=== PATIENT | female | born 1980 | race Hispanic/Latino ===

== ENCOUNTER 2016-10-18 02:52 | Emergency (ER) | payer OTHER | END 2016-10-18 23:12 | disposition home or self-care (01) | LOC: MERGE 02:52 → ED 02:52 | DX: M54.5 Low back pain (principal) ==

== ENCOUNTER 2017-01-26 21:15 | Emergency (ER) | payer OTHER ==
--- NOTE | 2017-01-26 21:19 | ED PDOC ---
Arrival/HPI <Mark Martínez - Last Filed: 01/26/17 23:00> - General Historian: Patient <Abelardo Mcgraw - Last Filed: 01/31/17 11:47> - General Time Seen by Provider: 01/26/17 21:18 - History of Present Illness Narrative History of Present Illness (Text): 01/26/17 21:19 36 y/o female, pmh including influenza, nkda, c/o multiple episodes of diarrhea s/p exposed to the patients with c.diff at her work. 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 Pt. stated that she has multiple episodes of diarrhea started this afternoon around 5pm, concerning that she has c.diff, no fever or chills, no chest pain or shortness of breath, no other medical or psychological complaints. (Abelardo Mcgraw) Past Medical History - Provider Review Nursing Documentation Reviewed: Yes - Tetanus Immunization Tetanus Immunization: Unknown - Past Medical History Past Medical History: No Previous - Psychiatric Hx Substance Use: No - Surgical History Hx Section: Yes Hx Cholecystectomy: Yes - Suicidal Assessment Feels Threatened In Home Enviroment: No <Abelardo Mcgraw - Last Filed: 01/31/17 11:47> Family/Social History - Physician Review Nursing Documentation Reviewed: Yes Family/Social History: Unknown Family HX Smoking Status: Never Smoked Hx Alcohol Use: No Hx Substance Use: No Hx Substance Use Treatment: No <Abelardo Mcgraw - Last Filed: 01/31/17 11:47> Allergies/Home Meds <Mark Martínez - Last Filed: 01/26/17 23:00> <Abelardo Mcgraw - Last Filed: 01/31/17 11:47> Allergies/Adverse Reactions: Allergies No Known Allergies Allergy (Verified 01/27/17 02:03) Review of Systems - Review of Systems Constitutional: absent: Fatigue, Fevers Eyes: absent: Vision Changes ENT: absent: Hearing Changes Respiratory: absent: SOB, Cough Cardiovascular: absent: Chest Pain Gastrointestinal: Diarrhea. absent: Abdominal Pain, Nausea, Vomiting Skin: absent: Rash, Pruritis Neurological: absent: Headache Endocrine: absent: Diaphoresis <Abelardo Mcgraw - Last Filed: 01/31/17 11:47> Physical Exam Vital Signs Reviewed: Yes Temperature: Afebrile Blood Pressure: Hypertensive Pulse: Regular Respiratory Rate: Normal Appearance: Positive for: Well-Appearing, Non-Toxic, Comfortable Pain Distress: None Mental Status: Positive for: Alert and Oriented X 3 - Systems Exam Head: Present: Atraumatic, Normocephalic Pupils: Present: PERRL Extroacular Muscles: Present: EOMI Conjunctiva: Present: Normal Mouth: Present: Moist Mucous Membranes Neck: Present: Normal Range of Motion Respiratory/Chest: Present: Clear to Auscultation, Good Air Exchange. No: Respiratory Distress, Accessory Muscle Use Cardiovascular: Present: Regular Rate and Rhythm, Normal S1, S2. No: Murmurs Abdomen: Present: Tenderness (+epigastric tenderness). No: Distention, Normal Bowel Sounds (hyperactive), Peritoneal Signs, Rebound, Guarding Back: Present: Normal Inspection. No: CVA Tenderness Upper Extremity: Present: Normal Inspection. No: Cyanosis, Edema Lower Extremity: Present: Normal Inspection. No: Edema Neurological: Present: GCS=15, Speech Normal, Motor Func Grossly Intact, Gait Normal, Memory Normal Skin: Present: Warm, Dry, Normal Color. No: Rashes Psychiatric: Present: Alert, Oriented x 3, Normal Insight, Normal Concentration <Abelardo Mcgraw - Last Filed: 01/31/17 11:47> Vital Signs Temp Pulse Resp BP Pulse Ox 01/27/17 02:00 79 18 135/78 100 01/26/17 21:38 98.3 F 86 18 143/99 H 100 Medical Decision Making <Mark Martínez - Last Filed: 01/26/17 23:00> - Lab Interpretations I have reviewed the lab results: Yes Interpretation: Abnormal lab values (K+ 3.1) - RAD Interpretation Trimmer Operator: Radiologist <Abelardo Mcgraw - Last Filed: 01/31/17 11:47> ED Course and Treatment: 01/26/17 21:48 -labs/ua/stool cultures -CT abdomen/pelvis -IVF/pepcid -observe and reassess 01/27/17 01:14 -labs are non-significant except potassium 3.1, potassium chloride ordered. -UA show no UTI -CT abdomen and pelvis show no acute findings -stool cultures pending and will take additional several days, still has diarrhea in the ER as per patient, very concerning for c.diff, flagyl po ordered and advised skipped all dairy and alcohol while on this medication. -Discharge home with pepcid/flagyl, stay hydrated, avoid dairy and alcohol, follow up with your own pmd and GI within 2 days, return to the ER for any new or worsening signs or symptoms. 01/31/17 11:46 -This is a follow up call to the patient, stool culture for cdiff toxin and antigen are negative, stool cultures show no samonella or any isolated bacteria noted, spoke to the patient and advised to stop any flagyl or antibiotics for diarrhea. Pt. appreciate the follow up and stated that she is feeling better now. (Abelardo Mcgraw) - Lab Interpretations Microbiology Results: Microbiology Results 01/26/17 22:18 Stool Stool Culture - Final NO SALMONELLA, SHIGELLA OR CAMPYLOBACTER ISOLATED. 01/26/17 22:18 Stool C. difficile Antigen & Toxin A,B (M - Final Lab Results: 01/26/17 22:18 01/26/17 22:18 Lab Results 01/26/17 22:18: Sodium 140, Potassium 3.1 L, Chloride 103, Carbon Dioxide 24, Anion Gap 16, BUN 13, Creatinine 0.9, Est GFR ( Amer) > 60, Est GFR (Non- Af Amer) > 60, Random Glucose 97, Calcium 8.8, Total Bilirubin 1.0, AST 32, ALT 27, Alkaline Phosphatase 41, Total Protein 6.7, Albumin 4.0, Globulin 2.7, Albumin/Globulin Ratio 1.5, Lipase 222 01/26/17 22:18: WBC 6.4, RBC 3.95, Hgb 12.0, Hct 35.2 L, MCV 89.1, MCH 30.4, MCHC 34.1, RDW 12.2, Plt Count 266, MPV 9.5, Gran % 47.3 L, Lymph % (Auto) 43.5 H, [place] % (Auto) 7.8 H, Eos % (Auto) 1.1 L, Baso % (Auto) 0.3, Gran # 3.04, Lymph # 2.8, [place] # 0.5, Eos # 0.1, Baso # 0.02 01/26/17 21:45: Urine Color Yellow, Urine Appearance Clear, Urine pH 7.0, Ur Specific [place] 1.010, Urine Protein Negative, Urine Glucose (UA) Negative, Urine Ketones Negative, Urine Blood Trace-intact H, Urine Nitrate Negative, Urine Bilirubin Negative, Urine Urobilinogen 0.2, Ur Leukocyte Esterase Negative , Urine RBC 1 - 3, Urine WBC 0 - 2, Ur Epithelial Cells 1 - 3, Urine Bacteria Few, Urine Other Fiber - RAD Interpretation Radiology Orders: 01/26/17 21:43 ABD & PELVIS IV CONTRAST ONLY [CT] Stat 01/26/17 21:43 ABD & PELVIS IV CONTRAST ONLY [CT] Stat FINDINGS: The liver, spleen, pancreas and adrenal glands demonstrate no acute abnormalities. Status post cholecystectomy. The kidneys are symmetric with no evidence of hydronephrosis. The aorta is unremarkable. Evaluation of bowel limited without enteric contrast. No bowel obstruction. Normal caliber appendix. Areas of apparent bowel wall prominence appear to be due to lack of distention. Cannot exclude minimal inflammation as visualized. Bilateral ovarian follicles/cysts. Fluid within the cervical canal. Further evaluation can be performed with dedicated ultrasound as warranted. No significant ascites. No free air. Degenerative changes. IMPRESSION: No definitive acute CT finding to correspond to reported history. Please see details/findings as above. Correlate clinically. Followup as warranted. Thank you for allowing us to participate in the care of your patient. Dictated and Authenticated by: Promise Almodovar MD 01/27/2017 12:56 AM Eastern Time ([place] & [place]) (Abelardo Mcgraw) - Medication Orders Current Medication Orders: Discontinued Medications Famotidine (Pepcid) 20 mg IVP STAT STA Stop: 01/26/17 21:44 Last Admin: 01/26/17 22:00 Dose: 20 mg Sodium Chloride (Sodium Chloride 0.9%) 1,000 mls @ 999 mls/hr IV .Q1H1M STA Stop: 01/26/17 22:43 Last Admin: 01/26/17 22:00 Dose: 999 mls/hr Iohexol (Omnipaque 350 100 Ml) Confirm Administered Dose 350 mg .ROUTE .STK-MED ONE Stop: 01/26/17 23:01 Metronidazole (Flagyl) 500 mg PO STAT STA PRN Reason: Protocol Stop: 01/27/17 01:14 Last Admin: 01/27/17 01:59 Dose: 500 mg Potassium Chloride (K-Dur 20 Meq Er Tab) 20 meq PO STAT STA Stop: 01/26/17 22:52 Last Admin: 01/27/17 02:00 Dose: 20 meq - PA / ACCOUNTING INTERN / Resident Statement ADRIANNA has reviewed & agrees with the documentation as recorded. ADRIANNA has examined the patient and agrees with the treatment plan. <Mark Martínez - Last Filed: 01/26/17 23:00> - PA / ACCOUNTING INTERN / Resident Statement ADRIANNA has reviewed & agrees with the documentation as recorded. <Abelardo Mcgraw - Last Filed: 01/31/17 11:47> Disposition/Present on Arrival <Mark Martínez - Last Filed: 01/26/17 23:00> - Present on Arrival Any Indicators Present on Arrival: No History of DVT/PE: No History of Uncontrolled Diabetes: No Urinary Catheter: No History of Decub. Ulcer: No History Surgical Site Infection Following: None - Disposition Have Diagnosis and Disposition been Completed?: Yes Disposition Time: 01:16 Patient Plan: Discharge <Abelardo Mcgraw - Last Filed: 01/31/17 11:47> - Disposition Diagnosis: Diarrhea, History of exposure to communicable disease Disposition: HOME/ ROUTINE Condition: GOOD Additional Instructions: -Discharge home with pepcid/flagyl, stay hydrated, avoid dairy and alcohol, follow up with your own pmd and GI within 2 days, return to the ER for any new or worsening signs or symptoms. Prescriptions: Famotidine [Pepcid] 20 mg PO BID #20 tab metroNIDAZOLE [Flagyl] 500 mg PO TID #30 tab Referrals: Nikki Shanks MD [Primary Care Provider] - Follow up with primary José Miguel Flores DO [Staff Provider] - Follow up with primary Forms: WORK NOTE
[2017-01-26 21:38] VITALS: RESP 18; TEMP 98.3; O2SAT 100
[2017-01-26 21:39] VITALS: BMI 30.3
[2017-01-26] MEDS ORDERED: Sodium Chloride 0.9% 1,000 ML IV STA (21:43)
[2017-01-26 21:53] LABS: URINE BILIRUBIN NEGATIVE (NEGATIVE); URINE BLOOD TRACE-INTACT (NEGATIVE); URINE GLUCOSE (UA) NEGATIVE (NEGATIVE); URINE KETONE NEGATIVE (NEGATIVE); URINE LEUKOCYTE ESTERASE NEGATIVE Leu/uL (NEGATIVE); URINE PROTEIN NEGATIVE mg/dL (<30 mg/dL); URINE UROBILINOGEN 0.2 E.U./dL (<1 E.U./dL)
[2017-01-26 21:54] LABS: URINE APPEARANCE CLEAR (CLEAR); URINE COLOR YELLOW (YELLOW)
[2017-01-26 21:59] LABS: URINE BACTERIA FEW (NEG); URINE WBC 0 - 2 /hpf (0-6)
[2017-01-26 22:36] LABS: BASO # 0.02 K/mm3 (0.0-2.0); BASO % 0.3 % (0.0-3.0); EOS # 0.1 (0.0-0.7); EOS % 1.1 % (1.5-5.0); GRAN # 3.04 (1.4-6.5); GRAN % 47.3 % (50.0-68.0); HEMATOCRIT 35.2 % (36.0-48.0); LYMPH # 2.8 (1.2-3.4); LYMPH % 43.5 % (22.0-35.0); MEAN CELL VOLUME 89.1 fl (80.0-105.0); MEAN CORPUSCULAR HEMOGLOBIN 30.4 pg (25.0-35.0); MEAN CORPUSCULAR HGB CONC 34.1 g/dl (31.0-37.0); MEAN PLATELET VOLUME 9.5 fl (7.0-11.0); MONO # 0.5 (0.1-0.6); MONO % 7.8 % (1.0-6.0); RED CELL DISTRIBUTION WIDTH 12.2 % (11.5-14.5); WHITE BLOOD COUNT 6.4 10^3/ul (4.5-11.0)
[2017-01-26 22:49] LABS: ALB/GLOB RATIO 1.5 (1.1-1.8); ALKALINE PHOSPHATASE 41 U/L (38-133); ALT/SGPT 27 U/L (7-56); AST/SGOT 32 U/L (15-39); BLOOD UREA NITROGEN 13 mg/dL (7-21); CALCIUM 8.8 mg/dL (8.4-10.5); CARBON DIOXIDE 24 mmol/L (21-33); CHLORIDE 103 mmol/L (98-107); GFR AFRICAN-AMERICAN > 60; GLUCOSE,RANDOM 97 mg/dL (70-110); LIPASE 222 U/L (23-300); POTASSIUM 3.1 mmol/L (3.6-5.0); SODIUM 140 mmol/L (132-148); TOTAL PROTEIN 6.7 g/dL (5.8-8.3)
[2017-01-26] MEDS ORDERED: Potassium Chloride 20 mEq ER Tab PO STA (22:51)
[2017-01-26] MEDS ORDERED: Iohexol 350 MG/100 ML VIAL ONE (23:00)
--- NOTE | 2017-01-27 00:56 | CT ---
EXAM: CT Abdomen and Pelvis With Intravenous Contrast CLINICAL HISTORY: 36 years old, female; Signs and symptoms; Other: Diarrhea; Prior surgery; Surgery date: 6+ months; Surgery type: HX cholecystectomy, HX ; Additional info: Multiple episodes of diarrhea TECHNIQUE: Axial computed tomography images of the abdomen and pelvis with intravenous contrast. All CT scans at this facility use one or more dose reduction techniques, viz.: automated exposure control; ma/kV adjustment per patient size (including targeted exams where dose is matched to indication; i.e. head); or iterative reconstruction technique. Coronal and sagittal reformatted images were created and reviewed. CONTRAST: 100 mL of Omnipaque 350 administered intravenously. COMPARISON: No relevant prior studies available. FINDINGS: The liver, spleen, pancreas and adrenal glands demonstrate no acute abnormalities. Status post cholecystectomy. The kidneys are symmetric with no evidence of hydronephrosis. The aorta is unremarkable. Evaluation of bowel limited without enteric contrast. No bowel obstruction. Normal caliber appendix. Areas of apparent bowel wall prominence appear to be due to lack of distention. Cannot exclude minimal inflammation as visualized. Bilateral ovarian follicles/cysts. Fluid within the cervical canal. Further evaluation can be performed with dedicated ultrasound as warranted. No significant ascites. No free air. Degenerative changes. IMPRESSION: No definitive acute CT finding to correspond to reported history. Please see details/findings as above. Correlate clinically. Followup as warranted.
[2017-01-27 02:00] VITALS: BP 135/78; PULSE 79
== END 2017-01-27 02:00 | disposition home or self-care (01) ==
LOC: ED 21:15
DX: R19.7 Diarrhea, unspecified (principal); Z20.9 Contact with and (suspected) exposure to unspecified communicable disease
CPT/HCPCS: 74177; 80053; 81001; 83690; 85025; 87045; 87324; 96374; 99283; J7040; Q9967

== ENCOUNTER 2017-06-28 10:42 | Emergency (ER) | payer OTHER ==
[2017-06-28 10:47] VITALS: BMI 32.7
[2017-06-28 10:52] VITALS: TEMP 98.2; O2SAT 99
--- NOTE | 2017-06-28 11:01 | ED PDOC ---
Arrival/HPI - General Chief Complaint: Chest Pain Time Seen by Provider: 06/28/17 10:52 Historian: Patient - History of Present Illness Narrative History of Present Illness (Text): 06/28/17 10:58 36yo female with no PMhx who present with complaint of left sided chest pain, described as "soreness" since yesterday. She notes that pain is intermittent and she usually gets SOB with the pain, because of worsening pain with deep inspiration. Did not take any medication for the pain. denies cough, orthopnea, trauma, LE edema, recent travel, recent surgery, OCP use, diaphoresis, nausea, vomiting, any other complaint. Past Medical History - Provider Review Nursing Documentation Reviewed: Yes - Infectious Disease Hx of Infectious Diseases: None - Tetanus Immunization Tetanus Immunization: Unknown - Past Medical History Past Medical History: No Previous - Psychiatric Hx Substance Use: No - Surgical History Hx Section: Yes Hx Cholecystectomy: Yes - Anesthesia Hx Anesthesia Reactions: No Hx Malignant Hyperthermia: No - Suicidal Assessment Feels Threatened In Home Enviroment: No Family/Social History - Physician Review Nursing Documentation Reviewed: Yes Family/Social History: Unknown Family HX Smoking Status: Never Smoked Hx Alcohol Use: No Hx Substance Use: No Hx Substance Use Treatment: No Allergies/Home Meds Allergies/Adverse Reactions: Allergies No Known Allergies Allergy (Verified 01/27/17 02:03) Review of Systems - Physician Review All systems were reviewed & negative as marked: Yes - Review of Systems Constitutional: Normal Eyes: Normal ENT: Normal Respiratory: Normal Cardiovascular: Chest Pain. absent: Palpitations, Edema, Calf Pain, YEPEZ, Orthopnea, Syncope Gastrointestinal: Normal Genitourinary Female: Normal Musculoskeletal: Normal Skin: Normal Neurological: Normal Endocrine: Normal Hemo/Lymphatic: Normal Psychiatric: Normal Physical Exam Vital Signs Reviewed: Yes Vital Signs Temp Pulse Resp BP Pulse Ox 06/28/17 10:42 98.2 F 71 17 124/74 99 Temperature: Afebrile Blood Pressure: Normal Pulse: Regular Respiratory Rate: Normal Appearance: Positive for: Well-Appearing, Non-Toxic, Comfortable Pain Distress: None Mental Status: Positive for: Alert and Oriented X 3 - Systems Exam Head: Present: Atraumatic, Normocephalic Pupils: Present: PERRL Extroacular Muscles: Present: EOMI Conjunctiva: Present: Normal Mouth: Present: Moist Mucous Membranes Neck: Present: Normal Range of Motion Respiratory/Chest: Present: Clear to Auscultation, Good Air Exchange, Tender to Palpation (Left sternal wall). No: Respiratory Distress, Accessory Muscle Use, Wheezes, Decreased Breath Sounds, Rales, Retracting, Rhonchi, Tachypneic Cardiovascular: Present: Regular Rate and Rhythm, Normal S1, S2. No: Murmurs Abdomen: Present: Normal Bowel Sounds. No: Tenderness, Distention, Peritoneal Signs Back: Present: Normal Inspection Upper Extremity: Present: Normal Inspection. No: Cyanosis, Edema Lower Extremity: Present: Normal Inspection. No: Edema Neurological: Present: GCS=15, CN II-XII Intact, Speech Normal Skin: Present: Warm, Dry, Normal Color. No: Rashes Psychiatric: Present: Alert, Oriented x 3, Normal Insight, Normal Concentration Medical Decision Making ED Course and Treatment: 06/28/17 11:01 36yo female in Ed for left sided chest pain x 2days. Labs ordered Chest xray ordered ASA ordered will re evaluate and dispo accordingly. 06/28/17 12:36 On re evaluation pt notes that her pain improved. Lab was unremarkable and chest xray was negative EKG NSR @72bpm No ST changes All result was DW the pt. she will be DC home with Ibuprofen 600mg for Pleuritic pain. Referred to her PMD/Secretarial Teacher. - Lab Interpretations Lab Results: 06/28/17 11:30 06/28/17 11:30 Lab Results 06/28/17 11:30: Sodium 140, Potassium 3.8, Chloride 103, Carbon Dioxide 28, Anion Gap 14, BUN 11, Creatinine 0.8, Est GFR ( Amer) > 60, Est GFR (Non- Af Amer) > 60, Random Glucose 85, Calcium 9.5, Magnesium 2.1, Total Bilirubin 0.8, AST 30, ALT 29, Alkaline Phosphatase 43, Lactate Dehydrogenase 432, Total Creatine Kinase 80, Troponin I < 0.01, Total Protein 7.4, Albumin 4.1, Globulin 3.3, Albumin/Globulin Ratio 1.3 06/28/17 11:30: Urine Color Yellow, Urine Appearance Clear, Urine pH 6.5, Ur Specific [place] 1.020, Urine Protein Negative, Urine Glucose (UA) Negative, Urine Ketones Negative, Urine Blood Negative, Urine Nitrate Negative, Urine Bilirubin Negative, Urine Urobilinogen 0.2, Ur Leukocyte Esterase Negative 06/28/17 11:30: PT 11.9, INR 1.03, APTT 27.6, D-Dimer, Quantitative < 200 06/28/17 11:30: WBC 6.4, RBC 4.40, Hgb 13.2, Hct 40.4, MCV 91.8, MCH 30.0, MCHC 32.7, RDW 12.5, Plt Count 296, MPV 9.9, Gran % 54.4, Lymph % (Auto) 38.7 H, [place] % (Auto) 5.8, Eos % (Auto) 0.9 L, Baso % (Auto) 0.2, Gran # 3.47, Lymph # 2.5, [place] # 0.4, Eos # 0.1, Baso # 0.01 - RAD Interpretation Radiology Orders: 06/28/17 10:57 CHEST PORTABLE [RAD] Stat - Medication Orders Current Medication Orders: Discontinued Medications Aspirin (Aspirin) 325 mg PO STAT STA Stop: 06/28/17 10:57 Last Admin: 06/28/17 11:25 Dose: 325 mg Ketorolac Tromethamine (Toradol) 30 mg IVP STAT STA Stop: 06/28/17 12:32 Disposition/Present on Arrival - Present on Arrival Any Indicators Present on Arrival: No History of DVT/PE: No History of Uncontrolled Diabetes: No Urinary Catheter: No History of Decub. Ulcer: No History Surgical Site Infection Following: None - Disposition Have Diagnosis and Disposition been Completed?: Yes Diagnosis: Pleuritic chest pain Disposition: HOME/ ROUTINE Disposition Time: 12:40 Patient Plan: Discharge Condition: STABLE Discharge Instructions (ExitCare): Chest Pain (ED) Additional Instructions: Follow up with your doctor/Secretarial Teacher Return to Ed for any new or worsening symptoms Prescriptions: Ibuprofen [Motrin Tab] 600 mg PO Q6 #20 tab Referrals: Nikki Shanks MD [Primary Care Provider] - Follow up with primary Vipul Brewer MD [Staff Provider] - Follow up with primary Forms: [employer] (Sami)
[2017-06-28 12:13] LABS: BASO # 0.01 K/mm3 (0.0-2.0); BASO % 0.2 % (0.0-3.0); EOS # 0.1 (0.0-0.7); EOS % 0.9 % (1.5-5.0); GRAN # 3.47 (1.4-6.5); GRAN % 54.4 % (50.0-68.0); HEMOGLOBIN 13.2 g/dL (12.0-16.0); LYMPH # 2.5 (1.2-3.4); LYMPH % 38.7 % (22.0-35.0); MEAN CELL VOLUME 91.8 fl (80.0-105.0); MEAN CORPUSCULAR HGB CONC 32.7 g/dl (31.0-37.0); MEAN PLATELET VOLUME 9.9 fl (7.0-11.0); MONO # 0.4 (0.1-0.6); MONO % 5.8 % (1.0-6.0); RBC 4.4 10^6/uL (3.5-6.1); RED CELL DISTRIBUTION WIDTH 12.5 % (11.5-14.5); WHITE BLOOD COUNT 6.4 10^3/ul (4.5-11.0)
[2017-06-28 12:15] LABS: PH,URINE 6.5 (4.7-8.0); URINE BILIRUBIN NEGATIVE (NEGATIVE); URINE BLOOD NEGATIVE (NEGATIVE); URINE GLUCOSE (UA) NEGATIVE (NEGATIVE); URINE LEUKOCYTE ESTERASE NEGATIVE Leu/uL (NEGATIVE); URINE NITRATE NEGATIVE (NEGATIVE); URINE PROTEIN NEGATIVE mg/dL (<30 mg/dL); URINE UROBILINOGEN 0.2 E.U./dL (<1 E.U./dL)
[2017-06-28 12:16] LABS: ALB/GLOB RATIO 1.3 (1.1-1.8); ALBUMIN 4.1 g/dL (3.0-4.8); ALT/SGPT 29 U/L (7-56); AST/SGOT 30 U/L (14-36); BLOOD UREA NITROGEN 11 mg/dL (7-21); CALCIUM 9.5 mg/dL (8.4-10.5); GFR AFRICAN-AMERICAN > 60; GFR NON-AFRICAN AMERICAN > 60; MAGNESIUM 2.1 mg/dL (1.7-2.2)
[2017-06-28 12:23] LABS: URINE APPEARANCE CLEAR (CLEAR); URINE COLOR YELLOW (YELLOW)
[2017-06-28 12:29] LABS: INR 1.03 (0.93-1.08); PARTIAL THROMBOPLASTIN TIME 27.6 Seconds (25.1-36.5); PROTHROMBIN TIME 11.9 SECONDS (9.4-12.5); TROPONIN I < 0.01 ng/mL
[2017-06-28 12:30] LABS: D DIMER < 200 ng/mL (0-243)
[2017-06-28 12:53] VITALS: BP 120/76; PULSE 60; RESP 16
--- NOTE | 2017-06-28 13:54 | RAD ---
HISTORY: Chest pain COMPARISON: 06/30/2014. FINDINGS: LUNGS: The lungs are well inflated and clear. PLEURA: No significant pleural effusion identified, no pneumothorax apparent. CARDIOVASCULAR: Normal. OSSEOUS STRUCTURES: No significant abnormalities. VISUALIZED UPPER ABDOMEN: Normal. OTHER FINDINGS: None. IMPRESSION: No active pulmonary disease.
--- NOTE | 2017-06-29 16:08 | CARD ---
APPROVED REPORT EKG Measurement Heart [id number] <Conclusion> Normal sinus rhythm Possible Left atrial enlargement Nonspecific T wave abnormality Abnormal ECG
== END 2017-06-28 13:14 | disposition home or self-care (01) ==
LOC: ED 10:42
DX: R07.89 Other chest pain (principal)
CPT/HCPCS: 71045; 80053; 81003; 82550; 83615; 83735; 84484; 85025; 85378; 85610; 85730; 93005; 96374; 99283; J1885

== ENCOUNTER 2017-07-15 08:08 | Emergency (ER) | payer OTHER ==
[2017-07-15 08:24] VITALS: RESP 18; BMI 32.0
--- NOTE | 2017-07-15 08:48 | ED PDOC ---
Arrival/HPI - General Time Seen by Provider: 07/15/17 08:28 Historian: Patient - History of Present Illness Narrative History of Present Illness (Text): 07/15/17 08:46 36 year old female, with no significant past medical history, presents to the Emergency department complaining of body ache, chills, fever and cough since last night. Patient informs worsening symptoms bringing her to the Emergency department today. Patient denies taking the flu shot this year or any sick contact. Patient denies any sore throat, nausea, vomiting, abdominal pain, diarrhea, chest pain, shortness of breath or any other complaints. Patient requests to get rapid flu swab test to be done. PMD: Dr. Luis Time/Duration: Other (last night) Symptom Onset: Gradual Symptom Course: Unchanged Quality: Aching Activities at Onset: Light Context: Home Past Medical History - Provider Review Nursing Documentation Reviewed: Yes - Infectious Disease Hx of Infectious Diseases: None - Tetanus Immunization Tetanus Immunization: Unknown - Past Medical History Past Medical History: No Previous - Psychiatric Hx Substance Use: No - Surgical History Hx Section: Yes Hx Cholecystectomy: Yes - Anesthesia Hx Anesthesia Reactions: No Hx Malignant Hyperthermia: No - Suicidal Assessment Feels Threatened In Home Enviroment: No Family/Social History - Physician Review Nursing Documentation Reviewed: Yes Family/Social History: No Known Family HX Smoking Status: Never Smoked Hx Alcohol Use: No Hx Substance Use: No Hx Substance Use Treatment: No Allergies/Home Meds Allergies/Adverse Reactions: Allergies No Known Allergies Allergy (Verified 07/15/17 09:21) Review of Systems - Physician Review All systems were reviewed & negative as marked: Yes - Review of Systems Constitutional: Fevers Eyes: Normal ENT: Normal. absent: Sore Throat Respiratory: Cough Cardiovascular: Normal. absent: Chest Pain Gastrointestinal: Normal. absent: Abdominal Pain, Diarrhea, Nausea, Vomiting Genitourinary Female: Normal Musculoskeletal: Other (generalized body aches) Skin: Normal Neurological: Normal Endocrine: Normal Hemo/Lymphatic: Normal Psychiatric: Normal Physical Exam Vital Signs Reviewed: Yes Vital Signs Temp Pulse Resp BP Pulse Ox 07/15/17 09:42 100.1 F H 100 H 18 119/64 97 07/15/17 09:01 100.7 F H 07/15/17 08:23 100.7 F H 82 18 123/76 100 Temperature: Febrile Blood Pressure: Normal Pulse: Regular Respiratory Rate: Normal Appearance: Positive for: Well-Appearing, Non-Toxic, Comfortable Pain Distress: None Mental Status: Positive for: Alert and Oriented X 3 - Systems Exam Head: Present: Atraumatic, Normocephalic Pupils: Present: PERRL Extroacular Muscles: Present: EOMI Conjunctiva: Present: Normal Mouth: Present: Moist Mucous Membranes Pharnyx: Present: ERYTHEMA Neck: Present: Normal Range of Motion Respiratory/Chest: Present: Clear to Auscultation, Good Air Exchange. No: Respiratory Distress, Accessory Muscle Use Cardiovascular: Present: Regular Rate and Rhythm, Normal S1, S2. No: Murmurs Abdomen: Present: Normal Bowel Sounds. No: Tenderness, Distention, Peritoneal Signs Back: Present: Normal Inspection Upper Extremity: Present: Normal Inspection. No: Cyanosis, Edema Lower Extremity: Present: Normal Inspection. No: Edema Neurological: Present: GCS=15, CN II-XII Intact, Speech Normal Skin: Present: Warm, Dry, Normal Color. No: Rashes Psychiatric: Present: Alert, Oriented x 3, Normal Insight, Normal Concentration Medical Decision Making ED Course and Treatment: 07/15/17 08:53 Impression: 36 year old female presents to the Emergency department for flu- like symptoms. Plan: -- Chest X-ray -- Tylenol -- Influenza -- Rapid flu swab -- Reassess and disposition Progress Notes: 07/15/17 09:31 Chest X-ray reviewed by radiologist, shows no active pulmonary disease. 07/15/17 13:22 high clinical suspciion for flu. treated empirically. - Lab Interpretations Lab Results: Lab Results 07/15/17 09:20: Influenza Typ A,B (EIA) Negative for flu a/b 07/15/17 09:20: Grp A Beta Strep Ag Negative - RAD Interpretation Radiology Orders: 07/15/17 08:33 CXR [CHEST TWO VIEWS (PA/LAT)] [RAD] Stat - Medication Orders Current Medication Orders: Discontinued Medications Acetaminophen (Tylenol 325mg Tab) 975 mg PO STAT STA Stop: 07/15/17 08:34 Last Admin: 07/15/17 09:01 Dose: 975 mg MAR Pain/Vitals Document 07/15/17 09:01 ARTEM (Rec: 07/15/17 09:02 ARTEM [id number]) Pain Reassessment Is This A Pain ReAssessment? No Sleep Is patient sleeping during reassessment? No Presence of Pain Presence of Pain No Pain Scale Used Pain Scale Used Numeric Vitals Temperature (97.6 F-99.6 F) 100.7 F - Scribe Statement The provider has reviewed the documentation as recorded by the Scribe Aminata Cohn. All medical record entries made by the Scribe were at my direction and personally dictated by me. I have reviewed the chart and agree that the record accurately reflects my personal performance of the history, physical exam, medical decision making, and the department course for this patient. I have also personally directed, reviewed, and agree with the discharge instructions and disposition. Disposition/Present on Arrival - Present on Arrival Any Indicators Present on Arrival: No History of DVT/PE: No History of Uncontrolled Diabetes: No Urinary Catheter: No History Surgical Site Infection Following: None - Disposition Have Diagnosis and Disposition been Completed?: Yes Diagnosis: Influenza-like illness Disposition: HOME/ ROUTINE Disposition Time: 09:54 Condition: STABLE Discharge Instructions (ExitCare): Viral Syndrome (ED) Additional Instructions: follow up with your doctor. return to er with worsening symptoms or concerns. Prescriptions: Oseltamivir Phosphate [Tamiflu] 75 mg PO BID #10 capsule Referrals: [facility] [place] [Outside] - Follow up with primary [facility] [Outside] - Follow up with primary Forms: [employer] (Croatian)
--- NOTE | 2017-07-15 09:30 | RAD ---
HISTORY: COMPARISON: 06/28/2017. TECHNIQUE: Chest PA and lateral FINDINGS: LINES AND TUBES: None. LUNG AND PLEURA: The lungs are well inflated and clear. HEART AND MEDIASTINUM: The heart is not enlarged. The hilar and mediastinal contours are within normal limits. SKELETAL STRUCTURES: The bony structures are within normal limits for the patient's age. VISUALIZED UPPER ABDOMEN: Normal. OTHER FINDINGS: None. IMPRESSION: No active pulmonary disease.
[2017-07-15 09:44] VITALS: BP 119/64; PULSE 100; TEMP 100.1; O2SAT 97
== END 2017-07-15 10:09 | disposition home or self-care (01) ==
LOC: ED 08:08
DX: J11.1 Influenza due to unidentified influenza virus with other respiratory manifestations (principal)

== ENCOUNTER 2017-12-27 02:53 | Emergency (ER) | payer OTHER ==
[2017-12-27 03:01] VITALS: BMI 31.1
[2017-12-27 03:06] VITALS: O2SAT 100
[2017-12-27] MEDS ORDERED: Sodium Chloride 0.9% 1,000 ML IV STA (03:20)
--- NOTE | 2017-12-27 03:24 | ED PDOC ---
Arrival/HPI - General Historian: Patient - History of Present Illness Time/Duration: Prior to Arrival Symptom Onset: Sudden Symptom Course: Intermittent Severity Level: 7, Moderate Activities at Onset: Rest <Brittney Shepard - Last Filed: 12/27/17 04:41> <Noe MACKAvinash - Last Filed: 12/27/17 05:59> - General Chief Complaint: Abdominal Pain Time Seen by Provider: 12/27/17 03:01 - History of Present Illness Narrative History of Present Illness (Text): 12/27/17 03:21 Patient is a 37 year old female with past medical history of gastric ulcers who presents to the ED for epigastric pain. Patient states that the pain started 45 minutes prior to arrival. Epigastric pain woke her up from her sleep. It is intermittent, non-radiating and was a 9/10 when symptoms started. Currently rates the pain a 7/10. Patient denies any alleviating or exacerbating factors. States that she has felt this pain before a year ago and was diagnosed with gastic ulcers via EGD at that time. Epigastric pain is associated with 3 episodes of NBNB vomiting. Denies fevers, chills, headaches, dizziness, cp, palpitations, sob, dysuria, hematuria, constipation/diarrhea. LMP was 12/01/17. (Brittney Shepard) Past Medical History - Provider Review Nursing Documentation Reviewed: Yes - Infectious Disease Hx of Infectious Diseases: None - Tetanus Immunization Tetanus Immunization: Unknown - Past Medical History Past Medical History: No Previous - Cardiac Hx Cardiac Disorders: No - Pulmonary Hx Respiratory Disorders: No - Neurological Hx Neurological Disorder: No - HEENT Hx HEENT Disorder: No - Renal Hx Renal Disorder: No - Endocrine/Metabolic Hx Endocrine Disorders: No - Hematological/Oncological Hx Blood Disorders: No - Integumentary Hx Dermatological Disorder: No - Musculoskeletal/Rheumatological Hx Musculoskeletal Disorders: No - Gastrointestinal Hx Gastrointestinal Ulcer: Yes - Psychiatric Hx Substance Use: No - Surgical History Hx Section: Yes Hx Cholecystectomy: Yes - Anesthesia Hx Anesthesia Reactions: No Hx Malignant Hyperthermia: No - Suicidal Assessment Feels Threatened In Home Enviroment: No <Brittney Shepard - Last Filed: 12/27/17 04:41> Family/Social History - Physician Review Nursing Documentation Reviewed: Yes Family/Social History: Diabetes, Hypertension Smoking Status: Never Smoked Hx Alcohol Use: No Hx Substance Use: No Hx Substance Use Treatment: No <Brittney Shepard - Last Filed: 12/27/17 04:41> Allergies/Home Meds <Brittney Shepard - Last Filed: 12/27/17 04:41> <Avinash Liu DO - Last Filed: 12/27/17 05:59> Allergies/Adverse Reactions: Allergies morphine Allergy (Verified 12/27/17 03:20) ITCHING shellfish derived Allergy (Verified 12/27/17 03:21) ANAPHYLAXIS Review of Systems - Review of Systems Constitutional: Normal. absent: Fatigue, Fevers Eyes: Normal. absent: Vision Changes ENT: Normal. absent: Hearing Changes Respiratory: Normal. absent: SOB, Cough, Wheezing Cardiovascular: Normal. absent: Chest Pain, Palpitations, Calf Pain Gastrointestinal: Normal, Abdominal Pain (Epigastric), Nausea, Vomiting. absent : Constipation, Diarrhea, Appetite Changes, Hematemesis, Food Intolerance Genitourinary Female: Normal. absent: Dysuria, Frequency, Hematuria Musculoskeletal: Normal Skin: Normal. absent: Rash Neurological: Normal. absent: Headache, Dizziness <Brittney Shepard - Last Filed: 12/27/17 04:41> - Physician Review All systems were reviewed & negative as marked: Yes <Avinash Liu DO - Last Filed: 12/27/17 05:59> Physical Exam Vital Signs Reviewed: Yes Temperature: Afebrile Blood Pressure: Normal Pulse: Regular Respiratory Rate: Normal Appearance: Positive for: Well-Appearing, Non-Toxic, Uncomfortable Pain Distress: Moderate Mental Status: Positive for: Alert and Oriented X 3 - Systems Exam Head: Present: Atraumatic, Normocephalic Pupils: Present: PERRL Extroacular Muscles: Present: EOMI Conjunctiva: Present: Normal Mouth: Present: Moist Mucous Membranes Neck: Present: Normal Range of Motion Respiratory/Chest: Present: Clear to Auscultation, Good Air Exchange. No: Respiratory Distress, Accessory Muscle Use Cardiovascular: Present: Regular Rate and Rhythm, Normal S1, S2 Abdomen: Present: Tenderness (Epigastric tenderness), Normal Bowel Sounds. No: Distention, Peritoneal Signs, Rebound, Guarding, McBurney's Point Tender, Hernias Back: Present: Normal Inspection. No: CVA Tenderness Upper Extremity: Present: Normal Inspection, Normal ROM, NORMAL PULSES Lower Extremity: Present: Normal Inspection, NORMAL PULSES. No: CALF TENDERNESS Neurological: Present: GCS=15, CN II-XII Intact Skin: Present: Warm, Dry, Normal Color Psychiatric: Present: Alert, Oriented x 3 <Brittney Shepard - Last Filed: 12/27/17 04:41> <Avinash Liu DO - Last Filed: 12/27/17 05:59> Vital Signs Temp Pulse Resp BP Pulse Ox 12/27/17 05:17 98 F 74 18 110/68 100 12/27/17 03:01 98.3 F 79 16 122/83 100 Medical Decision Making Re-evaluation Time: 04:40 Reassessment Condition: Re-examined, Improving,but remains with symptoms - Lab Interpretations I have reviewed the lab results: Yes <Brittney Shepard - Last Filed: 12/27/17 04:41> <Avinash Liu DO - Last Filed: 12/27/17 05:59> ED Course and Treatment: 12/27/17 03:28 Patient is a 37 year old female with past medical history of gastric ulcers who presents with epigastric pain that started prior to arrival that was associated with 3 episodes of NBNB vomiting. -Labs -Pepcid -NS bolus -Zofran 12/27/17 04:39 Patient re-evaluated at the bedside. States that pain scale is now 4/10 and she feels better. Will discharge patient home with instructions to follow up with her GI doctor and Dr Shanks. (Brittney Shepard) Patient Seen With Resident: In agreement with resident note which contains more details about the patient. Patient was seen and evaluated with resident. Came up with plan and treatment together. 37 year old female presents complaining of intermittent epigastric abdominal pain that began 45 minutes prior to arrival associated with 3 episodes of vomiting. Plan: - Labs -- Pepcid, IV Fluids, Zofran Inj -- POC Urine Preg Test -- Urinalysis -- Reassess and disposition (Avinash Liu DO) - Lab Interpretations Lab Results: 12/27/17 03:35 12/27/17 03:35 Lab Results 12/27/17 03:35: Sodium 139, Potassium 4.1, Chloride 102, Carbon Dioxide 26, Anion Gap 15, BUN 15, Creatinine 0.7, Est GFR ( Amer) > 60, Est GFR (Non- Af Amer) > 60, Random Glucose 100, Calcium 8.8, Total Bilirubin 0.5, AST 27, ALT 34, Alkaline Phosphatase 44, Total Protein 7.2, Albumin 4.0, Globulin 3.2, Albumin/Globulin Ratio 1.3 12/27/17 03:35: WBC 10.3 D, RBC 4.11, Hgb 12.5, Hct 36.1, MCV 87.8 D, MCH 30.4 , MCHC 34.6, RDW 12.5, Plt Count 256, MPV 10.0, Gran % 58.5, Lymph % (Auto) 34.0 , Kidder % (Auto) 6.5 H, Eos % (Auto) 0.9 L, Baso % (Auto) 0.1, Gran # 6.01, Lymph # (Auto) 3.5 H, Kidder # (Auto) 0.7 H, Eos # (Auto) 0.1, Baso # (Auto) 0.01 12/27/17 03:07: Urine Color Yellow, Urine Appearance Clear, Urine pH 6.0, Ur Specific [place] 1.020, Urine Protein Negative, Urine Glucose (UA) Negative, Urine Ketones Negative, Urine Blood Negative, Urine Nitrate Negative, Urine Bilirubin Negative, Urine Urobilinogen 0.2, Ur Leukocyte Esterase Negative - Medication Orders Current Medication Orders: Discontinued Medications Famotidine (Pepcid) 20 mg IVP STAT STA Stop: 12/27/17 03:21 Last Admin: 12/27/17 03:35 Dose: 20 mg IVP Administration Document 12/27/17 03:35 MS (Rec: 12/27/17 03:36 MS [id number]) Charges for Administration # of IVP Administrations 1 Sodium Chloride (Sodium Chloride 0.9%) 1,000 mls @ 999 mls/hr IV .Q1H1M STA Stop: 12/27/17 04:20 Last Admin: 12/27/17 03:34 Dose: 999 mls/hr eMAR Start Stop Document 12/27/17 03:34 MS (Rec: 12/27/17 03:34 MS [id number]) Intravenous Solution Start Date 12/27/17 Start Time 03:34 End Date 12/27/17 End time 04:34 Total Infusion Time 60 Ondansetron HCl (Zofran Inj) 4 mg IVP STAT STA Stop: 12/27/17 03:19 Last Admin: 12/27/17 03:34 Dose: 4 mg IVP Administration Document 12/27/17 03:34 MS (Rec: 12/27/17 03:34 MS [id number]) Charges for Administration # of IVP Administrations 1 <Brittney Shepard - Last Filed: 12/27/17 04:41> - PA / TWISTING DEPARTMENT END FINDER / Resident Statement ADRIANNA has reviewed & agrees with the documentation as recorded. / has examined the patient and agrees with the treatment plan. - Scribe Statement The provider has reviewed the documentation as recorded by the Scribe <Avinash Liu DO - Last Filed: 12/27/17 05:59> - Scribe Statement La Nena Delacruz Provider Scribe Attestation: All medical record entries made by the Scribe were at my direction and personally dictated by me. I have reviewed the chart and agree that the record accurately reflects my personal performance of the history, physical exam, medical decision making, and the department course for this patient. I have also personally directed, reviewed, and agree with the discharge instructions and disposition. (Avinash Liu DO) Disposition/Present on Arrival - Present on Arrival Any Indicators Present on Arrival: No History of DVT/PE: No History of Uncontrolled Diabetes: No Urinary Catheter: No History of Decub. Ulcer: No History Surgical Site Infection Following: None - Disposition Have Diagnosis and Disposition been Completed?: Yes Disposition Time: 04:41 Patient Plan: Discharge <Brittney Shepard - Last Filed: 12/27/17 04:41> - Disposition Disposition Time: 04:00 <Avinash Liu DO - Last Filed: 12/27/17 05:59> - Disposition Diagnosis: Gastritis Disposition: HOME/ ROUTINE Condition: GOOD Discharge Instructions (ExitCare): Gastritis (DC) Additional Instructions: COLLIN SAGASTUME, thank you for letting us take care of you today. The emergency medical care you received today was directed at your acute symptoms. If you were prescribed any medication, please fill it and take as directed. It may take several days for your symptoms to resolve. Return to the Emergency Department if your symptoms worsen, do not improve, or if you have any other problems. Please contact your doctor or call one of the physicians/clinics you have been referred to that are listed on the Patient Visit Information form that is included in your discharge packet. Bring any paperwork you were given at discharge with you along with any medications you are taking to your follow up visit. Our treatment cannot replace ongoing medical care by a primary care provider outside of the emergency department. Thank you for allowing the [facility] team to be part of your care today. Follow up with your primary care doctor in 2-3 days for re-evaluation and further management. Prescriptions: Omeprazole Magnesium [Prilosec Otc] 20 mg PO DAILY #14 tablet. Ranitidine HCl [Zantac] 150 mg PO BID #10 tablet Referrals: [facility], [Non-Staff] - Follow up with primary Nikki Shanks MD [Family Provider] - Follow up with primary Forms: [employer] ([place]ian)
[2017-12-27 03:53] LABS: BASO # 0.01 K/mm3 (0.0-2.0); BASO % 0.1 % (0.0-3.0); EOS # 0.1 (0.0-0.7); EOS % 0.9 % (1.5-5.0); GRAN # 6.01 (1.4-6.5); GRAN % 58.5 % (50.0-68.0); HEMOGLOBIN 12.5 g/dL (12.0-16.0); LYMPH # 3.5 (1.2-3.4); MEAN CELL VOLUME 87.8 fl (80.0-105.0); MEAN CORPUSCULAR HEMOGLOBIN 30.4 pg (25.0-35.0); MEAN CORPUSCULAR HGB CONC 34.6 g/dl (31.0-37.0); MONO # 0.7 (0.1-0.6); MONO % 6.5 % (1.0-6.0); RBC 4.11 10^6/uL (3.5-6.1); RED CELL DISTRIBUTION WIDTH 12.5 % (11.5-14.5); WHITE BLOOD COUNT 10.3 10^3/ul (4.5-11.0)
[2017-12-27 03:56] LABS: ALB/GLOB RATIO 1.3 (1.1-1.8); ALT/SGPT 34 U/L (7-56); AST/SGOT 27 U/L (14-36); BLOOD UREA NITROGEN 15 mg/dL (7-21); CALCIUM 8.8 mg/dL (8.4-10.5); GFR AFRICAN-AMERICAN > 60; GFR NON-AFRICAN AMERICAN > 60
[2017-12-27 04:58] LABS: URINE BILIRUBIN NEGATIVE (NEGATIVE); URINE BLOOD NEGATIVE (NEGATIVE); URINE GLUCOSE (UA) NEGATIVE (NEGATIVE); URINE LEUKOCYTE ESTERASE NEGATIVE Leu/uL (NEGATIVE); URINE PROTEIN NEGATIVE mg/dL (<30 mg/dL); URINE UROBILINOGEN 0.2 E.U./dL (<1 E.U./dL)
[2017-12-27 05:18] VITALS: BP 110/68; PULSE 74; RESP 18; TEMP 98
[2017-12-27 05:37] LABS: URINE APPEARANCE CLEAR (CLEAR); URINE COLOR YELLOW (YELLOW)
== END 2017-12-27 05:25 | disposition home or self-care (01) ==
LOC: ED 02:53
DX: K29.70 Gastritis, unspecified, without bleeding (principal); Z90.49 Acquired absence of other specified parts of digestive tract
CPT/HCPCS: 80053; 81003; 85025; 96361; 96374; 96375; 99285; J2405; J7030